=== PATIENT | female | born 1930 | race Caucasian/White ===

== ENCOUNTER 2016-09-19 13:04 | Outpatient (CLI) | payer MEDICARE, BC | END 2016-09-19 13:05 | disposition home or self-care (01) | DX: N39.0 Urinary tract infection, site not specified (principal) ==

== ENCOUNTER 2016-09-27 12:43 | Outpatient (CLI) | payer MEDICARE, BC | END 2016-09-27 12:44 | disposition home or self-care (01) | DX: N12 Tubulo-interstitial nephritis, not specified as acute or chronic (principal); R07.9 Chest pain, unspecified; B37.9 Candidiasis, unspecified ==

== ENCOUNTER 2016-10-25 13:15 | Outpatient (CLI) | payer MEDICARE, BC | END 2016-10-25 23:59 | DX: N12 Tubulo-interstitial nephritis, not specified as acute or chronic (principal) ==

== ENCOUNTER 2016-11-10 08:57 | Outpatient (CLI) | payer MEDICARE, BC | END 2016-11-10 08:58 | disposition home or self-care (01) | DX: R31.9 Hematuria, unspecified (principal); Z79.899 Other long term (current) drug therapy; N39.0 Urinary tract infection, site not specified ==

== ENCOUNTER 2016-11-20 10:12 | Outpatient (CLI) | payer MEDICARE, BC ==
[2016-11-20] MEDS ORDERED: IOPAMIDOL-300 100 ML VIAL IVP ONE (11:34)
--- NOTE | 2016-11-20 13:39 | CT Report ---
CT IVP: 11/20/2016 CLINICAL INDICATION: Hematuria. TECHNIQUE: Axial CT images of the abdomen and pelvis were obtained prior to and volume 100 mL Isovue -300, using split dose technique. In accordance with CT protocol optimization, one or more of the following dose reduction techniques w ere utilized for this exam: automated exposure control, adjustment of mA and/or KV based on patient size, or use of iterative reconstructive technique. COMPARISON: 08/13/2009 FINDINGS: The right kidney is atrophic, demonstrating multiple calculi, measuring up to 10 mm in marvin meter. The left kidney demonstrates no nephrolithiasis. The right kidney demonstrates cortical cyst s. No solid parenchymal lesion or collecting system mass is identified on either side. The liver de monstrates an anterior cyst. The spleen, pancreas, and right adrenal gland appear unremarkable. Sma ll left adrenal adenoma is stable from previous. No bowel dilatation, free gas, or free fluid is pre sent. No abdominal adenopathy is seen. Pelvis: There is a recurrent midline periumbilical hernia present, containing fat. No bowel herniat ion is identified. Sigmoid diverticulosis is present, without CT evidence of diverticulitis. The di stal ureters and urinary bladder appear unremarkable. No pelvic adenopathy or free fluid is present. Osseous structures demonstrate degenerative changes. IMPRESSION: ATROPHIC RIGHT KIDNEY, WITH MULTIPLE CALCULI PRESENT. NO HYDRONEPHROSIS OR HYDROURETER. NO SOLID RENAL MASS. JOB #: [id number] EXT JOB #:[id number]
== END 2016-11-20 10:13 | disposition home or self-care (01) ==
LOC: DI 10:12
PROVIDERS: ATTEND Physician Assistant Medical
DX: N26.1 Atrophy of kidney (terminal) (principal); N20.0 Calculus of kidney
CPT/HCPCS: 74178; Q9967

== ENCOUNTER 2017-02-10 11:48 | Emergency (ER) | payer MEDICARE, BC ==
[2017-02-10 12:42] LABS: BASOPHILS # (AUTO) 0.1 10^3/uL (0.0-0.1); BASOPHILS % (AUTO) 0.9 %; EOSINOPHILS # (AUTO) 0.3 10^3/uL (0.0-0.7); HCT - HEMATOCRIT 41.8 % (37.0-47.0); HGB - HEMOGLOBIN 14.3 g/dL (12.0-16.0); LYMPHOCYTES # (AUTO) 1.7 10^3/uL (1.5-3.5); LYMPHOCYTES % (AUTO) 25.7 %; MEAN CORPUSCULAR HEMOGLOBIN 31.9 pg (27.0-31.0); MEAN CORPUSCULAR HGB CONC 34.3 g/dL (32.0-36.0); MEAN CORPUSCULAR VOLUME 93.1 fL (81.0-99.0); MEAN PLATELET VOLUME 7.2 fL (7.9-10.8); MONOCYTES # (AUTO) 0.5 10^3/uL (0.0-1.0); MONOCYTES % (AUTO) 8.1 %; NEUTROPHILS % (AUTO) 61.3 %; RED BLOOD COUNT 4.49 10^6/uL (4.20-5.40); RED CELL DISTRIBUTION WIDTH 13.3 % (12.0-15.0); UNCORRECTED WHITE BLOOD COUNT 6.5 x10^3/uL; WHITE BLOOD COUNT 6.5 x10^3/uL (4.8-10.8)
[2017-02-10 12:56] LABS: ALBUMIN/GLOBULIN RATIO 1.7 (1.0-2.2); BILIRUBIN,TOTAL 0.5 mg/dL (0.2-1.0); CALCIUM 9.5 mg/dL (8.5-10.3); CREATININE 0.8 mg/dL (0.4-1.0); TOTAL PROTEIN 6.1 g/dL (6.7-8.2)
[2017-02-10] MEDS ORDERED: ASPIRIN CHEW 81 MG TABLET PO STA (12:57)
[2017-02-10] MEDS ORDERED: ASPIRIN CHEW 81 MG TABLET ONE (12:59)
--- NOTE | 2017-02-10 12:59 | ED Physician Documentation ---
PD HPI CHEST PAIN - Stated complaint Stated Complaint: CHEST PX - Chief complaint Chief Complaint: Cardiac - History obtained from History obtained from: Patient - History of Present Illness Timing - onset: Other (This is a kay 86-year-old woman with history of hypertension, but no known history of coronary disease who was awoken at 3 a.m. by central chest pain radiating to the jaw but not the back. It lasted for several hours and then went away. It woke her from sleep. She says it feels reminiscent to gallbladder pain she had 6 years ago before her cholecystectomy. She has no pain now. The pain was not associated with sweats, nausea, dizziness, shortness of breath. 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: 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 - Present Medications Home Medications: Ambulatory Orders Medication Instructions Recorded Confirmed Fexofenadine HCl [Dinorah Allergy] 1 tab ORAL DAILY 01/12/17 01/12/17 Nitrofurantoin Macrocrystal 1 tab ORAL DAILY 01/12/17 01/12/17 [Nitrofurantoin] Omeprazole [PriLOSEC] 1 tab ORAL BID 01/12/17 01/12/17 - Allergies Allergies/Adverse Reactions: Allergies Allergy/AdvReac Type Severity Reaction Status Date / Time azithromycin [From Zithromax] AdvReac Unknown Verified 02/10/17 12:07 codeine AdvReac Unknown Verified 02/10/17 12:07 Sulfa (Sulfonamide AdvReac Unknown Verified 02/10/17 12:07 Antibiotics) - Social History Does the pt smoke?: No Smoking Status: Never smoker - Family History Family history: reports: Non contributory PD ED PE NORMAL - Vitals Vital signs reviewed: Yes (hypertensive but improves with time) - General General: Alert and oriented X 3, No acute distress - HEENT HEENT: PERRL, EOMI - Neck Neck: Supple, no meningeal sign, No bony TTP - Cardiac Cardiac: RRR, No murmur - Respiratory Respiratory: No respiratory distress, Clear bilaterally - Abdomen Abdomen: Non tender - Derm Derm: Normal color, Warm and dry - Extremities Extremities: No edema, No calf tenderness / cord - Neuro Neuro: Alert and oriented X 3, Normal speech - Psych Psych: Normal mood, Normal affect Results - Vitals Vitals: Vital Signs - 24 hr 02/10/17 11:50 Temperature 36.7 C Heart Rate 64 Respiratory 14 Rate Blood Pressure 177/86 H O2 Saturation 96 Oxygen O2 Source Room air - EKG (time done) 1203 Rate: Rate (enter#) (58) Rhythm: NSR [place]: Normal Intervals: Normal [place] QRS: Normal Ischemia: Normal ST segments Computer interpretation: Agree with computer - Labs Labs: Laboratory Tests 02/10/17 02/10/17 02/10/17 12:35 12:35 12:35 WBC 6.5 RBC 4.49 Hgb 14.3 Hct 41.8 MCV 93.1 MCH 31.9 H MCHC 34.3 RDW 13.3 Plt Count 195 MPV 7.2 L Neut # 4.0 Lymph # 1.7 [place] # 0.5 Eos # 0.3 Baso # 0.1 Absolute Nucleated RBC 0.00 Nucleated RBCs 0.0 Sodium 142 Potassium 4.0 Chloride 106 Carbon Dioxide 28 Anion Gap 8.0 BUN 29 H Creatinine 0.8 Estimated GFR (MDRD) 68 L Glucose 145 H Calcium 9.5 Total Bilirubin 0.5 AST 20 ALT 15 Alkaline Phosphatase 60 Troponin I < 0.04 Total Protein 6.1 L Albumin 3.8 Globulin 2.3 Albumin/Globulin Ratio 1.7 Lipase 33 - Rads (name of study) 1v chest Radiology: EMP read contemporaneously (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 Initial workup is negative, but discussed need to take aspirin daily and return immediately if pain recurs otherwise to follow up with her doctor Sunday for evaluation and likely referral for stress testing. Departure - Departure Disposition: Home, Self Care Clinical Impression: Chest pain Qualifiers: Chest pain type: unspecified Qualified Code(s): R07.9 - Chest pain, unspecified Hypertension Qualifiers: Hypertension type: essential hypertension Qualified Code(s): I10 - Essential ( primary) hypertension Condition: Good Record reviewed to determine appropriate education?: Yes Instructions: ED Chest Pain Atypical Unkn Cause Comments: Take a baby aspirin daily, call Dr. han on Sunday morning to be reevaluated and likely be scheduled for a stress test. Return immediately if pain recurs by ambulance.
--- NOTE | 2017-02-10 13:28 | XRAY Preliminary Report ---
Exam: XR Chest 1 View IMPRESSION: Stable appearance of the chest from prior examinations, noting right diaphragmatic eventration. [facility] SITE ID: [id number]
--- NOTE | 2017-02-10 13:31 | XRAY Report ---
EXAM: CHEST RADIOGRAPHY EXAM DATE: 02/10/2017 01:15 PM. CLINICAL HISTORY: Chest pain. COMPARISON: None. TECHNIQUE: 1 view. FINDINGS: Lungs/Pleura: An opacity overlying the right mid and lower lung zones is stable from multiple prior e xaminations, and is in keeping with right diaphragmatic eventration as seen previously on CT. No defi nite superimposed infiltrate. The left lung is clear. Mediastinum: Within exam limitations, cardiomediastinal contour is normal. Other: None. IMPRESSION: Stable appearance of the chest from prior examinations, noting right diaphragmatic eventration. [facility] Referring Provider Line: [phone] SITE ID: [id number]
[2017-02-10 13:37] VITALS: BP 175/70
== END 2017-02-10 13:37 | disposition home or self-care (01) ==
LOC: ED 11:48
DX: R07.9 Chest pain, unspecified (principal); I10 Essential (primary) hypertension; M19.90 Unspecified osteoarthritis, unspecified site
CPT/HCPCS: 36415; 71010; 80053; 83690; 84484; 85025; 93005; 93010; 99283; 99284; A9270

== ENCOUNTER 2017-02-23 14:20 | Outpatient (CLI) | payer MEDICARE, BC | END 2017-02-23 14:21 | disposition home or self-care (01) | LOC: LAB.R 14:20 | PROVIDERS: ATTEND Family Medicine | DX: R30.0 Dysuria (principal) | CPT/HCPCS: 87077; 87086 ==

== ENCOUNTER 2017-03-02 12:15 | Outpatient (CLI) | payer MEDICARE, BC | END 2017-03-02 12:16 | disposition home or self-care (01) | LOC: LAB.R 12:15 | PROVIDERS: ATTEND Family Medicine | DX: N39.0 Urinary tract infection, site not specified (principal); E78.5 Hyperlipidemia, unspecified | CPT/HCPCS: 36415; 80061; 87086 ==

== ENCOUNTER 2017-03-02 14:00 | Outpatient (CLI) | payer MEDICARE, BC ==
[2017-03-02 19:47] LABS: CHOL/HDL RATIO 2.9 (<4.4); CHOLESTEROL 191 mg/dL; HDL CHOLESTEROL 65 mg/dL; LDL/HDL RATIO 1.6 (<4.4); TRIGLYCERIDES 107 mg/dL; VLDL CHOLESTEROL 21 mg/dL
== END 2017-03-02 14:01 | disposition home or self-care (01) ==
LOC: LAB.WCP 14:00
PROVIDERS: ATTEND Family Medicine
DX: E78.5 Hyperlipidemia, unspecified (principal)
CPT/HCPCS: 36415; 80061

== ENCOUNTER 2017-03-22 11:29 | Outpatient (CLI) | payer MEDICARE, BC ==
[2017-03-22 19:25] VITALS: BP 120/78
--- NOTE | 2017-03-23 11:15 | Nuclear Medicine Report ---
EXAM: SINGLE-ISOTOPE PHARMACOLOGICAL STRESS TEST WITH ADENOSINE. SINGLE-ISOTOPE AND SAME-DAY REST/STRESS MY OCARDIAL PERFUSION SCANS WITH TOMOGRAPHIC IMAGING, QUANTITATIVE ANALYSIS, WALL MOTION ANALYSIS AND CA LCULATION OF EJECTION FRACTION. EXAM DATE: 03/22/2017 12:35 PM. CLINICAL HISTORY: CHEST PAIN. COMPARISON: Chest x-ray 02/10/17. TECHNIQUE: Following the intravenous administration of 10.3 mCi of Tc-99m sestamibi, a rest myocardia l perfusion scan was done with tomography. Motion correction was applied when appropriate. After a delay of several hours on the same day, a pharmacological stress was performed with the infus ion of adenosine. According to protocol, 42 mCi of Tc-99m sestamibi was injected for stress myocardia l perfusion scan. Stress myocardial perfusion was done with tomography without attenuation correction . Motion correction was applied when appropriate. Gated tomographic images were obtained for wall motion analysis and computation of left ventricular ejection fraction. FINDINGS: There are no fixed or reversible perfusion defects. No other convincing perfusion abnormalities. No convincing evidence of transient ischemic dilatation. Resting wall motion analysis demonstrates The left ventricular end-diastolic volume is 48 cc. The left ventricular end-systolic volume is 8 cc. The left ventricular ejection fraction is calculated to be 82%. IMPRESSION: 1. No scintigraphic findings to indicate myocardial ischemia. Negative for infarct. 2. Normal left ventricular ejection fraction of 82%. 3. Normal segmental and global wall motion. 4. Normal left ventricular cavity size, no change with stress. [facility] Referring Provider Line: [phone] SITE ID: [id number]
--- NOTE | 2017-03-26 07:52 | CARDIAC PROCEDURE NOTE ---
DATE OF SERVICE: 03/22/2017 00:00:00 PRIMARY CARE PHYSICIAN: Yasmin Sellers MD PRIMARY CARE PROVIDER: VIKRAM Lundy PROCEDURE: Pharmacologic stress test. PROCEDURE SYMPTOMS: Chest pain. CARDIAC RISK FACTORS INCLUDE: Age and hypertension. PREVIOUS CARDIAC PROCEDURES: None. CLINICAL HISTORY: An 86-year-old female without known coronary artery disease. INITIAL RESTING VITAL SIGNS: Blood pressure 120/78, heart rate 61, height 58 inches, weight 139 pounds, BMI 29.1. PROCEDURE AND FINDINGS: Patient identity and date verified, consent signed. Safety stop. Pharmacologic stress testing was performed with Lexiscan at a dose of 0.4 mg over 10 seconds. The heart increased to 91 beats per minute from the infusion. Blood pressure response was normal during the stress procedure. The patient developed symptoms which included arm and leg tightness that resolved spontaneously. The resting ECG demonstrated normal sinus rhythm with no abnormalities. Maximum ST segment depression with stress was zero. There was a rare PVC. FINAL IMPRESSIONS 1. Negative electrocardiogram for ischemia in the setting of vasodilator stress. 2. Negative or nondiagnostic stress test for angina. 3. Rare PVC. DISCUSSION AND RECOMMENDATIONS: Await myocardial perfusion report. JOB #: [id number] EXT J[facility]:[id number] [facility] [place]
== END 2017-03-22 11:30 | disposition home or self-care (01) ==
LOC: DI 11:29
PROVIDERS: ATTEND Family Medicine
DX: R07.9 Chest pain, unspecified (principal); I10 Essential (primary) hypertension
CPT/HCPCS: 78452; 93017; A9500

== ENCOUNTER 2017-04-01 19:04 | Outpatient (CLI) | payer MEDICARE, BC | END 2017-04-01 19:05 | disposition critical access hospital (66) | LOC: EMS 19:04 | PROVIDERS: ATTEND Surgery | DX: R07.9 Chest pain, unspecified (principal) | CPT/HCPCS: A0425; A0427 ==

== ENCOUNTER 2017-04-01 19:46 | Emergency (ER) | payer MEDICARE, BC ==
[2017-04-01] MEDS ORDERED: MAG HYDROX/AL HYDROX/SIMETH 30 ML UDC PO STA (20:05)
[2017-04-01] MEDS ORDERED: LIDOCAINE VISCOUS 2% 15 ML UDC MM STA (20:05)
[2017-04-01] MEDS ORDERED: SUCRALFATE 1 GM/10 ML UDC PO STA (20:05)
[2017-04-01] MEDS ORDERED: SUCRALFATE 1 GM/10 ML UDC ONE (20:13)
[2017-04-01] MEDS ORDERED: LIDOCAINE VISCOUS 2% 15 ML UDC MM ONE (20:13)
[2017-04-01] MEDS ORDERED: MAG HYDROX/AL HYDROX/SIMETH 30 ML UDC ONE (20:13)
--- NOTE | 2017-04-01 20:23 | XRAY Preliminary Report ---
Exam: XR Chest 1 View IMPRESSION: 1. Chronic elevation of right hemidiaphragm. 2. No acute airspace process. 3. Cardiomegaly. [facility] SITE ID: [id number]
[2017-04-01 20:25] LABS: BASOPHILS # (AUTO) 0.1 10^3/uL (0.0-0.1); BASOPHILS % (AUTO) 0.7 %; EOSINOPHILS # (AUTO) 0.3 10^3/uL (0.0-0.7); EOSINOPHILS % (AUTO) 4.5 %; HCT - HEMATOCRIT 43.7 % (37.0-47.0); HGB - HEMOGLOBIN 15.1 g/dL (12.0-16.0); LYMPHOCYTES # (AUTO) 1.8 10^3/uL (1.5-3.5); LYMPHOCYTES % (AUTO) 24.8 %; MEAN CORPUSCULAR HEMOGLOBIN 32.1 pg (27.0-31.0); MEAN CORPUSCULAR HGB CONC 34.5 g/dL (32.0-36.0); MEAN CORPUSCULAR VOLUME 93.1 fL (81.0-99.0); MEAN PLATELET VOLUME 7.8 fL (7.9-10.8); MONOCYTES # (AUTO) 0.8 10^3/uL (0.0-1.0); MONOCYTES % (AUTO) 10.8 %; NEUTROPHILS # (AUTO) 4.2 10^3/uL (1.5-6.6); NEUTROPHILS % (AUTO) 59.2 %; RED BLOOD COUNT 4.69 10^6/uL (4.20-5.40); RED CELL DISTRIBUTION WIDTH 12.8 % (12.0-15.0); UNCORRECTED WHITE BLOOD COUNT 7.1 x10^3/uL; WHITE BLOOD COUNT 7.1 x10^3/uL (4.8-10.8)
--- NOTE | 2017-04-01 20:25 | XRAY Report ---
EXAM: CHEST RADIOGRAPHY EXAM DATE: 04/01/2017 08:08 PM. CLINICAL HISTORY: Chest pain. COMPARISON: 02/10/2017. TECHNIQUE: 1 view. FINDINGS: Lungs/Pleura: Right lung volume loss secondary to chronic elevation of the hemidiaphragm. The left ava ng remains clear. No definite pleural effusion or pneumothorax. Mediastinum: Enlarged heart. Other: None. IMPRESSION: 1. Chronic elevation of right hemidiaphragm. 2. No acute airspace process. 3. Cardiomegaly. [facility] Referring Provider Line: [phone] SITE ID: [id number]
--- NOTE | 2017-04-01 20:37 | ED Physician Documentation ---
PD HPI CHEST PAIN - Stated complaint Stated Complaint: CHEST PAIN - Chief complaint Chief Complaint: Cardiac - History obtained from History obtained from: Patient, Family - History of Present Illness Timing - onset: Today Timing - onset during: Sleep Timing - duration: Hours (1) Pain level max: 5 Pain level now: 1 Quality: Aching, Dull Location: Epigastric Radiation: Other (R chest) Improved by: Nothing Worsened by: Other (nothing) Associated symptoms: No: Shortness of air, Diaphoresis, Nausea, Vomiting, Feeling faint / dizzy, General Weakness, Palpitations, Cough Similar symptoms before: Diagnosis (chest pain) Recently seen: Emergency Dept (Seen here last month for same. Had a negative cardiac stress test 2 weeks ago) Review of Systems Constitutional: denies: Fever, Chills Throat: denies: Sore throat Cardiac: denies: Palpitations Respiratory: denies: Cough GI: denies: Nausea, Vomiting, Diarrhea, Hematemesis, Bloody / black stool Skin: denies: Rash Musculoskeletal: denies: Neck pain, Back pain Neurologic: denies: Headache PD PAST MEDICAL HISTORY - Past Medical History Cardiovascular: None, Hypertension, Peripheral Vascular Disease Respiratory: Pneumonia Neuro: None Endocrine/Autoimmune: None GI: GERD, Other : Retention, Indwelling catheter HEENT: Dental implants, Other Musculoskeletal: Osteoarthritis Derm: None - Past Surgical History Past Surgical History: Yes General: Cholecystectomy 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 HEENT: Tonsil/Adenoidectomy - Present Medications Home Medications: Ambulatory Orders Medication Instructions Recorded Confirmed Fexofenadine HCl [Dinorah Allergy] 1 tab ORAL DAILY 01/12/17 01/12/17 Nitrofurantoin Macrocrystal 1 tab ORAL DAILY 01/12/17 01/12/17 [Nitrofurantoin] Omeprazole [PriLOSEC] 1 tab ORAL BID 01/12/17 01/12/17 - Allergies Allergies/Adverse Reactions: Allergies Allergy/AdvReac Type Severity Reaction Status Date / Time azithromycin [From Zithromax] AdvReac Unknown Verified 04/01/17 19:50 codeine AdvReac Unknown Verified 04/01/17 19:50 Sulfa (Sulfonamide AdvReac Unknown Verified 04/01/17 19:50 Antibiotics) - Social History Does the pt smoke?: No Smoking Status: Never smoker PD ED PE NORMAL - Vitals Vital signs reviewed: Yes - General General: Alert and oriented X 3, No acute distress - HEENT HEENT: Moist mucous membranes - Neck Neck: Supple, no meningeal sign, No JVD, No bruit - Cardiac Cardiac: RRR, Strong equal pulses - Respiratory Respiratory: No respiratory distress, Clear bilaterally - Abdomen Abdomen: Soft, Other (Tender to palpation epigastric without peritoneal signs. Negative Epps sign) - Back Back: No CVA TTP, No spinal TTP - Derm Derm: Warm and dry, No rash - Extremities Extremities: No edema, No calf tenderness / cord - Neuro Neuro: Alert and oriented X 3 - Psych Psych: Normal mood, Normal affect Results - Vitals Vitals: Vital Signs - 24 hr 04/01/17 04/01/17 04/01/17 19:47 21:41 22:30 Temperature 36.5 C Heart Rate 65 63 74 Respiratory 18 18 16 Rate Blood Pressure 140/101 H 147/61 H 169/69 H O2 Saturation 99 95 97 Oxygen O2 Source Room air - EKG (time done) 2009 Rate: Rate (enter#) (59) Rhythm: NSR [place]: Normal Intervals: Normal [place] QRS: Normal Ischemia: Normal ST segments, Other (early R wave transition) - Labs Labs: Laboratory Tests 04/01/17 04/01/17 04/01/17 20:19 20:19 20:19 WBC 7.1 RBC 4.69 Hgb 15.1 Hct 43.7 MCV 93.1 MCH 32.1 H MCHC 34.5 RDW 12.8 Plt Count 198 MPV 7.8 L Neut # 4.2 Lymph # 1.8 [place] # 0.8 Eos # 0.3 Baso # 0.1 Absolute Nucleated RBC 0.00 Nucleated RBCs 0.0 Sodium 141 Potassium 3.9 Chloride 106 Carbon Dioxide 27 Anion Gap 8.0 BUN 26 H Creatinine 0.7 Estimated GFR (MDRD) 79 L Glucose 109 H Calcium 10.1 Total Bilirubin 0.2 AST 22 ALT 19 Alkaline Phosphatase 60 Troponin I < 0.04 Total Protein 6.5 L Albumin 4.0 Globulin 2.5 Albumin/Globulin Ratio 1.6 Lipase 33 04/01/17 22:05 WBC RBC Hgb Hct MCV MCH MCHC RDW Plt Count MPV Neut # Lymph # [place] # Eos # Baso # Absolute Nucleated RBC Nucleated RBCs Sodium Potassium Chloride Carbon Dioxide Anion Gap BUN Creatinine Estimated GFR (MDRD) Glucose Calcium Total Bilirubin AST ALT Alkaline Phosphatase Troponin I < 0.04 Total Protein Albumin Globulin Albumin/Globulin Ratio Lipase - Rads (name of study) cxr Radiology: Prelim report reviewed, EMP read contemporaneously, See rad report ( Chronic elevation of the right hemidiaphragm. No acute airspace process. Cardiomegaly.) PD MEDICAL DECISION MAKING - ED course Complexity details: reviewed old records, reviewed results, re-evaluated patient , considered differential (No ST elevation [place], no aortic dissection, no PE, no tension pneumothorax, no aortic aneurysm), d/w patient, d/w family ED course: Patient is an 86-year-old female who presents to the emergency department with epigastric pain that radiated to the chest. Symptoms resolved in the emergency department with a GI cocktail. Negative nuclear medicine cardiac stress test approximately 2 weeks ago. She is very well-appearing, nontoxic. Afebrile. Took aspirin prior to arrival. Did discuss observation for serial cardiac enzymes, she declines this and so a second troponin was performed in the emergency department which remained less than 0.04. Low risk for cardiac event at this time. Symptoms seem more consistent with GI etiology. We will have her follow-up with her doctor for further evaluation and care. Patient counseled regarding signs and symptoms for which I believe and urgent re- evaluation would be necessary. Patient with good understanding of and agreement to plan and is comfortable going home at this time This document was made in part using voice recognition software. While efforts are made to proofread this document, sound alike and grammatical errors may occur. Departure - Departure Disposition: 01 Home, Self Care Clinical Impression: Chest pain Qualifiers: Chest pain type: unspecified Qualified Code(s): R07.9 - Chest pain, unspecified Condition: Good Instructions: ED Chest Pain Atypical Unkn Cause Follow-Up: Yasmin Sellers MD [Primary Care Provider] - Within 1 week Comments: Return if you worsen. It is important that you follow-up closely with your doctor. Your heart tests are normal tonight. Discharge Date/Time: 04/01/17 22:52
[2017-04-01 20:40] LABS: ALBUMIN/GLOBULIN RATIO 1.6 (1.0-2.2); BILIRUBIN,TOTAL 0.2 mg/dL (0.2-1.0); CALCIUM 10.1 mg/dL (8.5-10.3); CREATININE 0.7 mg/dL (0.4-1.0); POTASSIUM 3.9 mmol/L (3.5-5.0); TOTAL PROTEIN 6.5 g/dL (6.7-8.2)
[2017-04-01 22:52] VITALS: BP 169/69
== END 2017-04-01 22:52 | disposition home or self-care (01) ==
LOC: EDUNIT# → ED 19:46 → SUPCPDRO 19:46 → ED 22:52
DX: R07.9 Chest pain, unspecified (principal); R10.13 Epigastric pain; I10 Essential (primary) hypertension; I73.9 Peripheral vascular disease, unspecified; K21.9 Gastro-esophageal reflux disease without esophagitis; M19.90 Unspecified osteoarthritis, unspecified site
CPT/HCPCS: 36415; 71010; 80053; 83690; 84484; 85025; 93005; 99284; A9270

== ENCOUNTER 2017-05-30 18:41 | Emergency (ER) | payer MEDICARE, BC ==
[2017-05-30 19:29] LABS: BASOPHILS # (AUTO) 0.1 10^3/uL (0.0-0.1); BASOPHILS % (AUTO) 0.7 %; EOSINOPHILS # (AUTO) 0.4 10^3/uL (0.0-0.7); EOSINOPHILS % (AUTO) 5.4 %; HCT - HEMATOCRIT 43.5 % (37.0-47.0); HGB - HEMOGLOBIN 15.1 g/dL (12.0-16.0); LYMPHOCYTES # (AUTO) 2.1 10^3/uL (1.5-3.5); LYMPHOCYTES % (AUTO) 26.9 %; MEAN CORPUSCULAR HEMOGLOBIN 32.5 pg (27.0-31.0); MEAN CORPUSCULAR HGB CONC 34.8 g/dL (32.0-36.0); MEAN CORPUSCULAR VOLUME 93.4 fL (81.0-99.0); MEAN PLATELET VOLUME 7.6 fL (7.9-10.8); MONOCYTES # (AUTO) 0.7 10^3/uL (0.0-1.0); MONOCYTES % (AUTO) 8.6 %; NEUTROPHILS # (AUTO) 4.5 10^3/uL (1.5-6.6); NEUTROPHILS % (AUTO) 58.4 %; RED BLOOD COUNT 4.66 10^6/uL (4.20-5.40); RED CELL DISTRIBUTION WIDTH 12.7 % (12.0-15.0); UNCORRECTED WHITE BLOOD COUNT 7.8 x10^3/uL; WHITE BLOOD COUNT 7.8 x10^3/uL (4.8-10.8)
--- NOTE | 2017-05-30 19:39 | ED Physician Documentation ---
PD HPI CHEST PAIN - Stated complaint Stated Complaint: CHEST PX - Chief complaint Chief Complaint: Cardiac - History obtained from History obtained from: Patient, Family - History of Present Illness Timing - onset: Today Timing - onset during: Rest Timing - duration: Minutes (5) Pain level max: 0 Pain level now: 0 Quality: Sharp Location: Right chest Improved by: Nothing Worsened by: No: Exertion, Inspiration, Eating, Movement, Palpation, Position Associated symptoms: No: Shortness of air, Diaphoresis, Nausea, Vomiting, Feeling faint / dizzy, General Weakness, Palpitations, Cough Similar symptoms before: Diagnosis (atypical chest pain) Recently seen: Not recently seen - Additional information Additional information: Patient is an 87-year-old female who presents to the emergency department with right-sided sharp chest pain that lasted 3-5 minutes. Radiated to the right jaw. Had a negative cardiac stress test in March of this year. 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 Review of Systems Ten Systems: 10 systems reviewed and negative Constitutional: denies: Fever, Chills Nose: denies: Rhinorrhea / runny nose, Congestion Respiratory: denies: Cough GI: denies: Abdominal Pain, Nausea, Vomiting, Diarrhea Skin: denies: Rash Musculoskeletal: denies: Neck pain, Back pain Neurologic: denies: Headache PD PAST MEDICAL HISTORY - Past Medical History Past Medical History: Yes Cardiovascular: None, Hypertension, Peripheral Vascular Disease Respiratory: Pneumonia Neuro: None Endocrine/Autoimmune: None GI: GERD, Other : Retention, Indwelling catheter HEENT: Dental implants, Other Musculoskeletal: Osteoarthritis Derm: None - Past Surgical History Past Surgical History: Yes General: Cholecystectomy 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 HEENT: Tonsil/Adenoidectomy - Present Medications Home Medications: Ambulatory Orders Medication Instructions Recorded Confirmed Fexofenadine HCl [Dinorah Allergy] 1 tab ORAL DAILY 01/12/17 01/12/17 Nitrofurantoin Macrocrystal 1 tab ORAL DAILY 01/12/17 01/12/17 [Nitrofurantoin] Omeprazole [PriLOSEC] 1 tab ORAL BID 01/12/17 01/12/17 - Allergies Allergies/Adverse Reactions: Allergies Allergy/AdvReac Type Severity Reaction Status Date / Time azithromycin [From Zithromax] AdvReac Unknown Verified 05/30/17 18:50 codeine AdvReac Unknown Verified 05/30/17 18:50 Sulfa (Sulfonamide AdvReac Unknown Verified 05/30/17 18:50 Antibiotics) - Social History Does the pt smoke?: No Smoking Status: Never smoker PD ED PE NORMAL - Vitals Vital signs reviewed: Yes - General General: Alert and oriented X 3, No acute distress, Well developed/nourished - HEENT HEENT: PERRL, Moist mucous membranes - Neck Neck: Supple, no meningeal sign - Cardiac Cardiac: RRR, Strong equal pulses - Respiratory Respiratory: No respiratory distress, Clear bilaterally, Other (No chest wall pain) - Abdomen Abdomen: Soft, Non tender, Non distended - Derm Derm: Warm and dry - Extremities Extremities: No edema, No calf tenderness / cord - Neuro Neuro: Alert and oriented X 3 - Psych Psych: Normal mood, Normal affect Results - Vitals Vitals: Oxygen O2 Source Room air - EKG (time done) 1858 Rate: Rate (enter#) (79) Rhythm: NSR, Other (PVC) [place]: Normal Intervals: Normal [place] QRS: Normal Ischemia: Normal ST segments Computer interpretation: Agree with computer - Labs Labs: Laboratory Tests 05/30/17 05/30/17 05/30/17 19:20 19:20 19:20 WBC 7.8 RBC 4.66 Hgb 15.1 Hct 43.5 MCV 93.4 MCH 32.5 H MCHC 34.8 RDW 12.7 Plt Count 197 MPV 7.6 L Neut # 4.5 Lymph # 2.1 [place] # 0.7 Eos # 0.4 Baso # 0.1 Absolute Nucleated RBC 0.00 Nucleated RBCs 0.0 Sodium 141 Potassium 3.7 Chloride 103 Carbon Dioxide 28 Anion Gap 10.0 BUN 24 H Creatinine 0.8 Estimated GFR (MDRD) 68 L Glucose 95 Calcium 9.8 Total Bilirubin 0.6 AST 22 ALT 14 Alkaline Phosphatase 64 Troponin I < 0.04 Total Protein 6.7 Albumin 4.1 Globulin 2.6 Albumin/Globulin Ratio 1.6 Lipase 35 05/30/17 21:26 WBC RBC Hgb Hct MCV MCH MCHC RDW Plt Count MPV Neut # Lymph # [place] # Eos # Baso # Absolute Nucleated RBC Nucleated RBCs Sodium Potassium Chloride Carbon Dioxide Anion Gap BUN Creatinine Estimated GFR (MDRD) Glucose Calcium Total Bilirubin AST ALT Alkaline Phosphatase Troponin I < 0.04 Total Protein Albumin Globulin Albumin/Globulin Ratio Lipase - Rads (name of study) cxr Radiology: Prelim report reviewed, EMP read contemporaneously, See rad report ( No acute abnormality. Stable elevation of the right hemidiaphragm. ) PD MEDICAL DECISION MAKING - ED course Complexity details: reviewed results, re-evaluated patient, considered differential (No ST elevation [place], no aortic dissection, no PE, no tension pneumothorax, no aortic aneurysm), d/w patient, d/w family ED course: Patient is an 87-year-old female who presents to the emergency department with atypical chest pain today that lasted for a few minutes earlier. Negative troponin 2. No acute findings on EKG. Negative cardiac stress test approximately 2 months ago. No recurrence of symptoms. No arrhythmia on telemetry. Patient and family are comfortable following up with her PCP as an outpatient and did not want stay in the hospital. Patient and family counseled regarding signs and symptoms for which I believe and urgent re-evaluation would be necessary. Patient with good understanding of and agreement to plan and is comfortable going home at this time This document was made in part using voice recognition software. While efforts are made to proofread this document, sound alike and grammatical errors may occur. Departure - Departure Disposition: 01 Home, Self Care Clinical Impression: Chest pain Qualifiers: Chest pain type: unspecified Qualified Code(s): R07.9 - Chest pain, unspecified Condition: Good Instructions: ED Chest Pain Atypical Unkn Cause Follow-Up: Yasmin Sellers MD [Primary Care Provider] - Within 1 week Comments: Return if you worsen. Discharge Date/Time: 05/30/17 22:38
[2017-05-30 19:46] LABS: ALBUMIN/GLOBULIN RATIO 1.6 (1.0-2.2); BILIRUBIN,TOTAL 0.6 mg/dL (0.2-1.0); CALCIUM 9.8 mg/dL (8.5-10.3); CREATININE 0.8 mg/dL (0.4-1.0); POTASSIUM 3.7 mmol/L (3.5-5.0); TOTAL PROTEIN 6.7 g/dL (6.7-8.2)
--- NOTE | 2017-05-30 20:03 | XRAY Preliminary Report ---
Exam: XR Chest 1 View IMPRESSION: No acute abnormality. Stable elevation of the right hemidiaphragm. [facility] SITE ID: [id number]
--- NOTE | 2017-05-30 20:06 | XRAY Report ---
EXAM: CHEST RADIOGRAPHY EXAM DATE: 05/30/2017 07:34 PM. CLINICAL HISTORY: Chest pain. COMPARISON: 04/01/2017. TECHNIQUE: 1 view. FINDINGS: Lungs/Pleura: Stable elevation of the right hemidiaphragm. No focal opacities evident. No pleural eff usion. No pneumothorax. Mediastinum: Normal heart size for technique. Stable tortuous calcified aortic arch. Other: No bony abnormality noted. IMPRESSION: No acute abnormality. Stable elevation of the right hemidiaphragm. [facility] Referring Provider Line: [phone] SITE ID: [id number]
[2017-05-30 22:37] VITALS: BP 167/63
== END 2017-05-30 22:38 | disposition home or self-care (01) ==
LOC: ED 18:41
DX: R07.9 Chest pain, unspecified (principal); R94.31 Abnormal electrocardiogram [ECG] [EKG]; I10 Essential (primary) hypertension; I73.9 Peripheral vascular disease, unspecified; Z96.659 Presence of unspecified artificial knee joint
CPT/HCPCS: 36415; 71010; 80053; 83690; 84484; 85025; 93005; 99283

== ENCOUNTER 2017-10-09 10:02 | Outpatient (CLI) | payer MEDICARE, BC ==
[2017-10-09 12:57] LABS: BASOPHILS % (AUTO) 0.5 %; EOSINOPHILS # (AUTO) 0.3 10^3/uL (0.0-0.7); EOSINOPHILS % (AUTO) 4.6 %; HGB - HEMOGLOBIN 13.9 g/dL (12.0-16.0); LYMPHOCYTES # (AUTO) 2.3 10^3/uL (1.5-3.5); LYMPHOCYTES % (AUTO) 32.7 %; MEAN CORPUSCULAR HGB CONC 33.5 g/dL (32.0-36.0); MEAN CORPUSCULAR VOLUME 98.5 fL (81.0-99.0); MEAN PLATELET VOLUME 8.3 fL (7.9-10.8); MONOCYTES # (AUTO) 0.7 10^3/uL (0.0-1.0); MONOCYTES % (AUTO) 9.7 %; NEUTROPHILS # (AUTO) 3.7 10^3/uL (1.5-6.6); NEUTROPHILS % (AUTO) 52.5 %; PLT - PLATELET COUNT 207 10^3/uL (130-450); RED BLOOD COUNT 4.19 10^6/uL (4.20-5.40); RED CELL DISTRIBUTION WIDTH 13.2 % (12.0-15.0)
[2017-10-09 13:16] LABS: ALBUMIN/GLOBULIN RATIO 1.5 (1.0-2.2); ALKALINE PHOSPHATASE 60 IU/L (42-121); ALT ALANINE AMINOTRANSFERASE 18 IU/L (10-60); AST ASPARTATE AMINOTRANSFERASE 27 IU/L (10-42); BILIRUBIN,TOTAL 0.9 mg/dL (0.2-1.0); BUN - BLOOD UREA NITROGEN 24 mg/dL (6-20); CALCIUM 9.9 mg/dL (8.5-10.3); CARBON DIOXIDE - CO2 29 mmol/L (21-32); CHLORIDE 103 mmol/L (101-111); CHOL/HDL RATIO 3.1 (<4.4); CHOLESTEROL 196 mg/dL; CREATININE 0.9 mg/dL (0.4-1.0); GFR - MDRD 59 (>89); GLUCOSE 93 mg/dL (70-100); HDL CHOLESTEROL 63 mg/dL; LDL CHOLESTEROL,CALCULATED 116 mg/dL; LDL/HDL RATIO 1.8 (<4.4); SODIUM 142 mmol/L (135-145); TOTAL PROTEIN 6.6 g/dL (6.7-8.2); VLDL CHOLESTEROL 17 mg/dL
== END 2017-10-09 10:03 | disposition home or self-care (01) ==
LOC: LAB.WCP 10:02
PROVIDERS: ATTEND Family Medicine
DX: E78.5 Hyperlipidemia, unspecified (principal); I10 Essential (primary) hypertension; R73.01 Impaired fasting glucose; E55.9 Vitamin D deficiency, unspecified; Z51.81 Encounter for therapeutic drug level monitoring; Z79.899 Other long term (current) drug therapy
CPT/HCPCS: 36415; 80053; 80061; 83721; 84443; 85025

== ENCOUNTER 2017-10-24 10:56 | Outpatient (CLI) | payer MEDICARE, BC ==
--- NOTE | 2017-10-24 13:07 | Ultrasound Report ---
THYROID ULTRASOUND: 10/24/2017 CLINICAL INDICATION: Thyromegaly. 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 FINDINGS: The right lobe measures 4.5 x 1.8 x 1.3 cm, and the left lobe measures 3.7 x 1.4 x 0.9 cm. The isthmus measures 4 mm. There are multiple bilateral subcentimeter cysts and tiny solid nodules. No dominant suspicious lesion is identified. IMPRESSION: MULTIPLE SMALL CYSTS BILATERALLY. NO DOMINANT SUSPICIOUS SOLID NODULE IS IDENTIFIED. TD: 10/24/2017 13:05
== END 2017-10-24 10:57 | disposition home or self-care (01) ==
LOC: DI 10:56
PROVIDERS: ATTEND Family Medicine
DX: E04.2 Nontoxic multinodular goiter (principal)
CPT/HCPCS: 76536

== ENCOUNTER 2017-12-12 14:50 | Outpatient (CLI) | payer MEDICARE, BC | END 2017-12-12 14:51 | disposition home or self-care (01) | LOC: LAB.R 14:50 | PROVIDERS: ATTEND Family Medicine | DX: N39.0 Urinary tract infection, site not specified (principal) | CPT/HCPCS: 87086 ==

== ENCOUNTER 2017-12-24 08:00 | Outpatient (CLI) | payer MEDICARE, BC | END 2017-12-24 08:01 | disposition home or self-care (01) | LOC: LAB.R 08:00 | PROVIDERS: ATTEND Family Medicine | DX: R35.0 Frequency of micturition (principal) | CPT/HCPCS: 87086 ==